=== PATIENT | female | born 1980 | race Caucasian/White ===

== ENCOUNTER 2016-10-30 11:38 | Emergency (ER) | payer BC ==
[~2016-10-30] VITALS: Ht 160 cm; Wt 53.3 kg
[~2016-10-30 11:38] MED LIST: BUPR150T3 PO; PHEN100C4 PO
[2016-10-30 11:40] VITALS: Ht 160 cm; Wt 53.3 kg
--- OUTSIDE RECORDS SUMMARY | 2016-10-30 11:43 | XMS REPORT | Continuity of Care Document ---
Author Author [facility] Organization [facility] Address Unknown Phone Unavailable Support Name Relationship Address Phone KIKE ARTHUR BABY SITTER Caregiver [address] [place] [address] Unavailable CHANNING SHER APRN Caregiver [address] [place] [address] Unavailable JONATHAN KONG Next Of Kin [address] [place] [address] C Insurance Providers Guarantor Marilee Kong Address [address] [place] [address] * Email [email or web address] Policy Number [id number] Subscriber's Name Joanthan Kong Relationship 01 Spouse Group Number [id number] Chief Complaint and Reason for Visit Chief Complaint Female Urogenital Problems Reason for Visit Abdominal pain Problems Past Problems Medical Problem Onset Date Abdominal pain Unknown Persistent cough Unknown Viral upper respiratory tract infection with cough Unknown Medications Current Home Medications Medication Dose Units Route Directions Days Qty Instructions Start Date Bupropion Hcl (Wellbutrin Sr) 150 Mg Tablet Twice A Day 04/30 Phenytoin Sodium Extended (Dilantin) 100 Mg Capsule 1.5 Cap Oral Bedtime Take 1 capsule, by mouth, daily with breakfast. 10/29/16 Social History Social History Problem Response Recorded Date/Time Onset Date Status Hx Alcohol Use Y OCCASIONALLY 06/29/2016 12:04am Not Applicable Not Applicable Hospital Discharge Instructions No hospital discharge instructions. Plan of Care Discharge Date 10/29/16 6:50pm Disposition 01 DISCHARGED HOME, SELF-CARE Condition at Discharge Stable Prescriptions See Medication Section Referrals CHANNING SHER APRN Address: [address] [place], [place] [id number] Additional Instructions/Education Go to the ER for further evaluation and treatment. Functional Status No functional status results. Allergies, Adverse Reactions, Alerts No known allergies. Immunizations Query Response on File Recorded Date/Time Influenza Vaccine Hx MAY 2016 10/29/16 6:38pm Tetanus Diptheria Vaccine History UP TO DATE 10/29/16 6:38pm Vital Signs Acute Vital Signs Vital Response Date/Time Temperature (Fahrenheit) 97.6 deg F (96.8 - 99.1) 10/29/2016 6:39pm Temperature (Calculated Celsius) 36.92493 degrees C (36.0 - 37.3) 10/29/2016 6:39pm Pulse Rate (adult) 86 bpm (60 - 100) 10/29/2016 6:39pm O2 Sat by Pulse Oximetry 97 % (90 - 100) 10/29/2016 6:39pm Blood Pressure 101/67 mm Hg 10/29/2016 6:39pm Height (Inches) 63.20 inches 10/29/2016 6:39pm Weight (Kilograms) 56.800 kg 10/29/2016 6:39pm Body Mass Index (BMI) 22.0 10/29/2016 6:39pm Results Laboratory Results Test Name Result Units Flags Reference Collection Date/Time Result Date/ Time Comments White Blood Count 7.0 T/MM3 4.5-11.0 08/05/2016 11:00am 08/05/2016 11: 06am Red Blood Count 4.41 M/MM3 4.00-5.20 08/05/2016 11:00am 08/05/2016 11: 06am Hemoglobin 13.6 GM/DL 12-16 08/05/2016 11:00am 08/05/2016 11:06am Hematocrit 40.6 % 36-46 08/05/2016 11:00am 08/05/2016 11:06am Mean Corpuscular Volume 92.1 UM3 80-100 08/05/2016 11:00am 08/05/2016 11:06am Mean Corpuscular Hemoglobin 30.8 UUG 26-34 08/05/2016 11:00am 2015 11:06am Mean Corpuscular Hemoglobin Concent 33.5 GM/DL 31-37 08/05/2016 11:00am 08/05/2016 11:06am RDW Standard Deviation 40.2 FL 36.9-50.2 08/05/2016 11:00am 08/05/2016 11:06am Platelet Count 228 T/MM3 130-400 08/05/2016 11:00am 08/05/2016 11:06am Mean Platelet Volume 9.4 UM3 9.4-12.4 08/05/2016 11:00am 08/05/2016 11: 06am Neutrophils (%) (Auto) 66.0 % 33-66 08/05/2016 11:00am 08/05/2016 11: 06am Lymphocytes (%) (Auto) 23.7 % 23-45 08/05/2016 11:00am 08/05/2016 11: 06am Monocytes (%) (Auto) 8.8 % 0-9.0 08/05/2016 11:00am 08/05/2016 11:06am Eosinophils (%) (Auto) 0.7 % 0-4 08/05/2016 11:00am 08/05/2016 11:06am Basophils (%) (Auto) 0.7 % 0-2 08/05/2016 11:00am 08/05/2016 11:06am Immature Granulocyte % (Auto) 0.1 % 0.0-0.5 08/05/2016 11:00am 2015 11:06am Absolute Neutrophils (auto) 4.6 T/MM3 1.8-7.7 08/05/2016 11:00am 2015 11:06am Absolute Lymphocytes (auto) 1.7 T/MM3 1-4.8 08/05/2016 11:00am 2015 11:06am Absolute Monocytes (auto) 0.6 T/MM3 0-0.8 08/05/2016 11:00am 2015 11:06am Absolute Eosinophils (auto) 0.1 T/MM3 0-0.5 08/05/2016 11:00am 2015 11:06am Absolute Basophils (auto) 0.1 T/MM3 0-0.2 08/05/2016 11:00am 2015 11:06am Absolute Immature Granulocyte (auto 0.01 T/MM3 0.00-0.03 08/05/2016 11: 00am 08/05/2016 11:06am Icterus Index < 2 0-7 08/05/2016 11:00am 08/05/2016 11:16am Chemistry Specimen Hemolysis < 15 0-25 08/05/2016 11:00am 08/05/2016 11:16am 0-25: Specimen Exhibited No Hemolysis. Turbidity < 20 0-20 08/05/2016 11:00am 08/05/2016 11:16am Sodium Level 140 MEQ/L 134-144 08/05/2016 11:00am 08/05/2016 11:16am Potassium Level 3.8 MEQ/L 3.6-5 08/05/2016 11:00am 08/05/2016 11:16am Chloride Level 104 MEQ/L 98-107 08/05/2016 11:00am 08/05/2016 11:16am Carbon Dioxide Level 27 MEQ/L 22-30 08/05/2016 11:00am 08/05/2016 11: 16am Anion Gap 9 MEQ/L 5-15 08/05/2016 11:00am 08/05/2016 11:16am Blood Urea Nitrogen 12.0 MG/DL 7-17 08/05/2016 11:00am 08/05/2016 11: 16am Creatinine 0.9 MG/DL 0.7-1.2 08/05/2016 11:00am 08/05/2016 11:16am BUN/Creatinine Ratio 13 RATIO 6-26 08/05/2016 11:00am 08/05/2016 11: 16am Glomerular Filtration Rate Calc 72 08/05/2016 11:00am 08/05/2016 11 :16am Glucose Level 86 MG/DL 65-110 08/05/2016 11:00am 08/05/2016 11:16am Calculated Osmolality 268 MOSM/KG 261-280 08/05/2016 11:00am 2015 11:16am Calcium Level 9.4 MG/DL 8.4-10.2 08/05/2016 11:00am 08/05/2016 11:16am Total Bilirubin 0.80 MG/DL 0.20-1.30 08/05/2016 11:00am 08/05/2016 11: 16am Alkaline Phosphatase 48 U/L 38-126 08/05/2016 11:00am 08/05/2016 11: 16am Total Protein 7.1 G/DL 6.3-8.2 08/05/2016 11:00am 08/05/2016 11:16am Albumin 4.2 G/DL 3.5-5.0 08/05/2016 11:00am 08/05/2016 11:16am Globulin 2.9 G/DL 2.4-3.6 08/05/2016 11:00am 08/05/2016 11:16am Albumin/Globulin Ratio 1.4 RATIO 1.1-2.2 08/05/2016 11:00am 08/05/2016 11:16am Aspartate Amino Transf (AST/SGOT) 25 U/L 14-36 08/05/2016 11:00am 08/05 11:16am Alanine Aminotransferase (ALT/SGPT) 31 U/L 9-52 08/05/2016 11:00am 11:16am Cholesterol Level 125 MG/DL L 132-199 08/05/2016 11:00am 08/10/2016 1: 14am Triglycerides Level 47 MG/DL 35-135 08/05/2016 11:00am 08/10/2016 1: 14am HDL Cholesterol Direct 55 MG/DL 40-60 08/05/2016 11:00am 08/10/2016 1: 14am LDL Cholesterol, Calculated 60.6 L 66-159 08/05/2016 11:00am 2015 1:14am VLDL Cholesterol 9.4 MG/DL 0-28 08/05/2016 11:00am 08/10/2016 1:14am Cholesterol/HDL Ratio 2.3 RATIO 0-4.0 08/05/2016 11:00am 08/10/2016 1: 14am Thyroid Stimulating Hormone (TSH) 1.35 MIU/L 0.47-4.68 08/05/2016 11: 00am 08/05/2016 11:45am Urine Collection Type CLEANCATCH-MIDSTREAM 10/29/2016 6:32pm 2016 6:59pm Urine Color YELLOW YELLOW 10/29/2016 6:32pm 10/29/2016 6:59pm Urine Turbidity CLEAR CLEAR 10/29/2016 6:32pm 10/29/2016 6:59pm Urine Specific [place] 1.015 1.015-1.025 10/29/2016 6:32pm 2016 6:59pm Urine pH 6.0 5.0-8.0 10/29/2016 6:32pm 10/29/2016 6:59pm Urine Leukocyte Esterase NEGATIVE NEGATIVE 10/29/2016 6:32pm 2016 6:59pm Urine Nitrite NEGATIVE NEGATIVE 10/29/2016 6:32pm 10/29/2016 6:59pm Urine Protein NEGATIVE NEGATIVE 10/29/2016 6:32pm 10/29/2016 6:59pm Urine Glucose (UA) NEGATIVE NEGATIVE 10/29/2016 6:32pm 10/29/2016 6: 59pm Urine Ketones NEGATIVE NEGATIVE 10/29/2016 6:32pm 10/29/2016 6:59pm Urine Urobilinogen NORMAL EU/DL NORMAL 10/29/2016 6:32pm 10/29/2016 6: 59pm Urine Bilirubin NEGATIVE NEGATIVE 10/29/2016 6:32pm 10/29/2016 6: 59pm Urine Blood NEGATIVE NEGATIVE 10/29/2016 6:32pm 10/29/2016 6:59pm Procedures Procedure Status Date Provider(s) Routine venipuncture Completed 08/05/16 Comprehen metabolic panel Completed 08/05/16 Lipid panel Completed 08/05/16 Assay thyroid stim hormone Completed 08/05/16 Complete cbc w/auto diff wbc Completed 08/05/16 Encounters Encounter Location Arrival/Admit Date Discharge/Depart Date Attending Provider Departed Emergency Room [facility] 10/29/16 6:27pm 10/29/16 6: 50pm KIKE ARTHUR APRN Registered Clinic [facility] 08/05/16 10:48am ALEXANDRA CARLISLE APRN Recent Diagnosis
--- NOTE | 2016-10-30 12:10 | NUR ---
PROVIDER Vikas MORALEZ ICE CREAM VENDOR IN TO SEE PATIENT.
--- NOTE | 2016-10-30 12:24 | ERPDOC ---
Departure Disposition Decision Date: Oct 30, 2016 Disposition Decision Time: 16:50 (TEAGAN MORALEZ APRN) Disposition: 01 DISCHARGED HOME, SELF-CARE Impression Impression (TEAGAN MORALEZ APRN) Impression: Primary Impression: Complex cyst of right ovary Severity: Moderate (TEAGAN MORALEZ APRN) Condition: Stable Seen By: Mid-level only (TEAGAN MORALEZ APRN) Referrals: CHANNING SHER APRN (Family) Patient Instructions: Ovarian Cyst (ED) Problems/Meds/Labs Reviewed?: Yes Medications reviewed and manag: Yes (TEAGAN MORALEZ APRN) Additional Instructions: Ultrasound today indicates that you have a complex cyst of the right ovary. You do have some blood in the low abdomen/pelvis as a result of this. I did speak with Dr. Hope and we will go ahead and let you go home. May use Ibuprofen and /or Tylenol for moderate pain and [place] as needed for severe pain. I do want you to return to ER for reevaluation with any severe pain not controlled by the pain medications or any dizziness or lightheadedness. Otherwise follow up with Dr Palencia or Channing GORMAN for reevaluation this week. The pressure that you feel in your bladder is likely from the blood in your pelvis and this should be reabsorbed over the next week. Follow up care ordered?: Yes Mental Status: Alert, Oriented (TEAGAN MORALEZ APRN) Scripts Hydrocodone/Acetaminophen ([place] 5-325 Tablet) 5-325 Tablet 1 TAB PO Q6H Y for PAIN, #12 TAB 0 Refills Prov: TEAGAN MORALEZ APRN 10/30/16 HPI - Abdominal Pain General Chief Complaint: Abdominal Pain Stated Complaint: ABD PAIN Time Seen by Provider: 12:10 Source: patient History/Exam Limitations: no limitations (TEAGAN MORALEZ APRN) Time Seen by Provider: 12:10 (SUBHA LINDQUIST MD) HPI - Abdominal Pain Initial Comments She had onset of RLQ/periumbilical abdominal pain since yesterday. She was able to get through work all day. She thought that she may have had a UTI so she went to [facility] after work. Had a U/A and an HCG that was negative. She was advised to go to ER for evaluation but decided to go home and see if things improved. Pain has gotten worse overnight and so she presents today for eval. Denies any urinary frequency or urgency but is having a pressure in her lower abdomen. Denies any fever or chills or nausea/vomiting. Has had some mild diarrhea. Has been eating and drinking well. Had an IUD placed the first week of October and has had cessation of bleeding since placement. Return for recheck of strings in November with her PCP. Occurred At: home Onset: Gradual Duration: other (For the last 2 days) Quality: burning, sharpness Location: RLQ, periumbilical Radiation: no radiation Activities at Onset: none Associated Symptoms: DENIES: back pain, chest pain, diaphoresis, fatigue, fever /chills, headache, heartburn, nausea/vomiting, rash, shortness of breath, swelling/mass in abdomen, syncope, weakness Hx of Similar Symptoms: No (NOLD,TEAGAN N HYDROELECTRIC PLANT MAINTAINER) Allergies: Coded Allergies: No Known Allergies (Unverified , 10/29/16) Past History Past Medical History Pt denies signifigant PMH (NOLD,TEAGAN N HYDROELECTRIC PLANT MAINTAINER) Surgical History Denies Surgeries (NOLD,TEAGAN N HYDROELECTRIC PLANT MAINTAINER) Family History Family History: Negative (NOLD,TEAGAN N HYDROELECTRIC PLANT MAINTAINER) Social History Second Hand Exposure: No Quit Date: Aug 15, 1999 Substance Use Type: does not use Alcohol Intake: occasionally (NOLD,TEAGAN N HYDROELECTRIC PLANT MAINTAINER) Review of Systems Constitutional Constitutional: DENIES: appetite decrease, chills, dizziness, fatigue, fever, weakness (NOLD,TEAGAN N HYDROELECTRIC PLANT MAINTAINER) Cardiovascular Cardiac: DENIES: chest pain, orthopnea Rhythm/Rate: DENIES: irregular beat, palpitations (NOLD,TEAGAN N HYDROELECTRIC PLANT MAINTAINER) Pulmonary Respiratory: DENIES: cough, dyspnea, sputum, tachypnea (NOLD,TEAGAN N HYDROELECTRIC PLANT MAINTAINER) GI Upper Abdomen: DENIES: nausea, pain, vomiting Lower Abdomen: diarrhea (slight), pain, DENIES: constipation (NOLD,TEAGAN N HYDROELECTRIC PLANT MAINTAINER) General: burning (She describes a pressure in her bladder with urination), DENIES: discharge, dysuria, frequency, urgency (NOLD,TEAGAN N HYDROELECTRIC PLANT MAINTAINER) Integumentary Skin: DENIES: rash (NOLD,TEAGAN N HYDROELECTRIC PLANT MAINTAINER) Neurological General: DENIES: headache, numbness, tingling, weakness (TEAGAN MORALEZ APRN) Physical Exam General General Nourishment: well nourished, well developed, appears stated age, no acute distress, adult General Body Habitus: well groomed (TEAGAN MORALEZ APRN) Vitals and Pain First Documented Vital Signs Date Time Temp Pulse Resp B/P Pulse Ox O2 Delivery O2 Flow Rate FiO2 10/30/16 11:40 98.7 71 16 121/57 98 Room Air (SUBHA LINDQUIST MD) Vitals and Pain Weight: Kilograms: 53.300 Height (feet): 5 Height (inches): 3.00 Triage Pain Scale: (TEAGAN MORALEZ APRN) RN VS reviewed by Provider: Yes (TEAGAN MORALEZ APRN) Normal Exams: Neck: Full range of motion, without adenopathy, JVD, bruits or thyromegaly Chest/Resp: Clear all leos, with good airflow, and symmetry bilaterally CV: Regular rate and rhythm, without murmur or gallop, Pulses 2+ all extremities, capillary refill, <2 seconds all ext., no pedal edema noted Abdomen: Bowel sounds positive, non-distended, no hepatosplenomegaly, masses or bruits noted Lymphatic: No lymphadenopathy, or lymphedema noted Integumentary: No rashes, hives, or bruising noted Neurologic: Patient is alert, and oriented Psychiatric: Patient exhibits, appropriate attention, emotion and affect (TEAGAN MORALEZ HYDROELECTRIC PLANT MAINTAINER) Abdomen Palpation: FOUND: soft, tender (TTP in the RLQ and periumbilical region), voluntary guarding, NOT FOUND: involuntary guarding, rebound (MARIZOL MORALEZA N HYDROELECTRIC PLANT MAINTAINER ) (brief) Female Brief: FOUND: bleeding (scant amount of bright red blood from the cervical os), discharge (moderate amount of white, thick discharge consistent with a yeast infection), other (IUD strings are visualized), tenderness (Mild TTP on the right adnexa) (TEAGAN MORALEZ N HYDROELECTRIC PLANT MAINTAINER) Differential Diagnoses Considering: Appendicitis, Bowel Obstruction, GERD, Hernia, Ileus, Ovarian Cyst , Pyelonephritis, UTI (TEAGAN MORALEZ N HYDROELECTRIC PLANT MAINTAINER) Progress Results/Orders Medications Current ED Medications Iohexol 1 bottle 1 bottle STK-MED ONCE .ROUTE ; Start 10/30/16 at 13:05; Stop at 13:06; Status DC Sodium Chloride (NS) 100 ml @ As Directed STK-MED ONCE .ROUTE ; Start 10/30/16 at 13:05; Stop 10/30/16 at 13:06; Status DC Sodium Chloride (Iv Flush) 10 ml STK-MED ONCE .ROUTE ; Start 10/30/16 at 13:05; Stop 10/30/16 at 13:06; Status DC Ketorolac Tromethamine (Toradol) 30 mg O ONCE IV Last administered on t 16:19; Start 10/30/16 at 16:00; Stop 10/30/16 at 16:01; Status DC Fluconazole (DIFLUCAN 150mg) 150 mg O ONCE PO Last administered on 10/30/16t 17:01; Start 10/30/16 at 17:00; Stop 10/30/16 at 17:01; Status DC (SUBHA LINDQUIST MD) Progress Progress Ct scan does show a hypodense right ovarian mass that measures 3.8x3.4x4.0cm. Ovarian torsion vs ruptured ectopic vs endometrioma vs PID vs hemorrhagic cyst. There is also moderate to large amount of blood in the pelvis. Her WBC is normal and HCG today is negative as well as HCG yesterday. Will go ahead and obtain pelvic US as well as pelvic exam. She has had some vaginal discharge and she attributes this to possible yeast infection. She had taken some of her 's old antibiotics and the discharge started after this. HGB stable at 12.4 US does confirm a complex right ovarian cyst with moderate amount of blood in pelvis. She has been stable and pain well controlled. Discussed lab, CT, US, and pelvic exam results with Dr. Hope. Given that she is not and IUD strings visualized and confirmed in uterus per CT will go ahead and let her go home with pain control. F/U in clinic this week for reevaluation. Strict return precautions are given. (TEAGAN MORALEZ APRN) CT CT : Reason for Exam: RLQ abdominal pain CT: Abd/Pelvis IV contrast Interpretation: Abnormal (hypodense right ovarian mass measuring 3.8x3.4x4.0cm. Moderate to large hyperdense pelvic blood. ) (TEAGAN MORALEZ APRN) Ultrasound US : Reason for Exam: right ovarian mass, moderate to large blood in pelvis Ultrasound: Pelvis US Interpretation: Abnormal (complex right ovarian cyst with moderate blood in pelvis) (TEAGAN MORALEZ APRN) TEAGAN MORALEZ Amira GORMAN Oct 30, 2016 12:24 SUBHA LINDQUIST MD Nov 01, 2016 10:14 Hemoglobin 12.4GM/DL Hematocrit 36.3% Mean Corpuscular Volume 91.4UM3 Mean Corpuscular Hemoglobin 31.2UUG Mean Corpuscular Hemoglobin Concent 34.2GM/DL RDW Standard Deviation 39.5FL Platelet Count 211T/MM3 Mean Platelet Volume 9.6UM3 Immature Granulocyte % (Auto) 0.0% Neutrophils (%) (Auto) 62.3% Lymphocytes (%) (Auto) 26.2% Monocytes (%) (Auto) 9.3% Eosinophils (%) (Auto) 1.4% Basophils (%) (Auto) 0.8% Absolute Immature Granulocyte (auto 0.00T/MM3 Absolute Neutrophils (auto) 3.9T/MM3 Absolute Lymphocytes (auto) 1.6T/MM3 Absolute Monocytes (auto) 0.6T/MM3 Absolute Eosinophils (auto) 0.1T/MM3 Absolute Basophils (auto) 0.1T/MM3 Turbidity < 20 Sodium Level 142MEQ/L Potassium Level 4.2MEQ/L Chloride Level 107MEQ/L Carbon Dioxide Level 28MEQ/L Anion Gap 7MEQ/L Blood Urea Nitrogen 14.0MG/DL Creatinine 0.8MG/DL Glomerular Filtration Rate Calc 82 BUN/Creatinine Ratio 18RATIO Glucose Level 88MG/DL Calculated Osmolality 273MOSM/KG Calcium Level 8.8MG/DL Total Bilirubin 0.80MG/DL Icterus Index < 2 Aspartate Amino Transf (AST/SGOT) 24U/L Alanine Aminotransferase (ALT/SGPT) 31U/L Alkaline Phosphatase 47U/L Total Protein 6.4G/DL Albumin 3.7G/DL Globulin 2.7G/DL Albumin/Globulin Ratio 1.4RATIO Chemistry Specimen Hemolysis < 15 Urine Collection Type Cleancatch-midstream Urine Color Yellow Urine Turbidity Clear Urine pH 6.5 Urine Specific [place] 1.010 Urine Protein Negative Urine Glucose (UA) Negative Urine Ketones Negative Urine Blood Negative Urine Nitrite Negative Urine Bilirubin Negative Urine Urobilinogen 0.2EU/DL Urine Leukocyte Esterase Negative Urinalysis Comment Microscopic not ind. Urine Test Negative Chlamydia trachomatis DNA (PCR) Pending N. gonorrhoeae DNA Specimen Source Pending Neisseria gonorrhoeae DNA (PCR) Pending Medications Current ED Medications Iohexol 1 bottle 1 bottle STK-MED ONCE .ROUTE ; Start 10/30/16 at 13:05; Stop at 13:06; Status DC Sodium Chloride (NS) 100 ml @ As Directed STK-MED ONCE .ROUTE ; Start 10/30/16 at 13:05; Stop 10/30/16 at 13:06; Status DC Sodium Chloride (Iv Flush) 10 ml STK-MED ONCE .ROUTE ; Start 10/30/16 at 13:05; Stop 10/30/16 at 13:06; Status DC Ketorolac Tromethamine (Toradol) 30 mg O ONCE IV Last administered on t 16:19; Start 10/30/16 at 16:00; Stop 10/30/16 at 16:01; Status DC Progress Progress Ct scan does show a hypodense right ovarian mass that measures 3.8x3.4x4.0cm. Ovarian torsion vs ruptured ectopic vs endometrioma vs PID vs hemorrhagic cyst. There is also moderate to large amount of blood in the pelvis. Her WBC is normal and HCG today is negative as well as HCG yesterday. Will go ahead and obtain pelvic US as well as pelvic exam. She has had some vaginal discharge and she attributes this to possible yeast infection. She had taken some of her 's old antibiotics and the discharge started after this. HGB stable at 12.4 US does confirm a complex right ovarian cyst with moderate amount of blood in pelvis. She has been stable and pain well controlled. Discussed lab, CT, US, and pelvic exam results with Dr. Hope. Given that she is not and IUD strings visualized and confirmed in uterus per CT will go ahead and let her go home with pain control. F/U in clinic this week for reevaluation. Strict return precautions are given. CT CT : Reason for Exam: RLQ abdominal pain CT: Abd/Pelvis IV contrast Interpretation: Abnormal (hypodense right ovarian mass measuring 3.8x3.4x4.0cm. Moderate to large hyperdense pelvic blood. ) Ultrasound US : Reason for Exam: right ovarian mass, moderate to large blood in pelvis Ultrasound: Pelvis US Interpretation: Abnormal (complex right ovarian cyst with moderate blood in pelvis) TEAGAN MORALEZ APRN Oct 30, 2016 12:24
--- NOTE | 2016-10-30 12:29 | NUR ---
COMMUNICATION STUDIES PROFESSOR IN ROOM TO DRAW LAB.
[2016-10-30] MEDS ORDERED: LAMO150T PO (12:32)
[2016-10-30] MEDS ORDERED: NAPR220T61 PO (12:32)
[2016-10-30 12:42] LABS: BASOPHILS # (AUTO) 0.1 T/MM3 (0-0.2); BASOPHILS % (AUTO) 0.8 % (0-2); EOSINOPHILS # (AUTO) 0.1 T/MM3 (0-0.5); EOSINOPHILS % (AUTO) 1.4 % (0-4); HCT - HEMATOCRIT 36.3 % (36-46); HGB - HEMOGLOBIN 12.4 GM/DL (12-16); LYMPHOCYTES # (AUTO) 1.6 T/MM3 (1-4.8); LYMPHOCYTES % (AUTO) 26.2 % (23-45); MEAN CORPUSCULAR HGB 31.2 UUG (26-34); MEAN CORPUSCULAR HGB CONC(MCHC 34.2 GM/DL (31-37); MEAN CORPUSCULAR VOLUME 91.4 UM3 (80-100); MEAN PLATELET VOLUME 9.6 UM3 (9.4-12.4); MONOCYTES # (AUTO) 0.6 T/MM3 (0-0.8); MONOCYTES % (AUTO) 9.3 % (0-9.0); NEUTROPHILS #(AUTO)-ABSOLUTE 3.9 T/MM3 (1.8-7.7); NEUTROPHILS % (AUTO) 62.3 % (33-66); RED BLOOD COUNT 3.97 M/MM3 (4.00-5.20); WBC - WHITE BLOOD COUNT 6.2 T/MM3 (4.5-11.0)
[2016-10-30 12:43] LABS: BLOOD, URINE NEGATIVE (NEGATIVE); COLOR,URINE YELLOW (YELLOW); LEUKOCYTE ESTERASE ,URINE NEGATIVE (NEGATIVE); NITRITE,URINE NEGATIVE (NEGATIVE); UROBILINOGEN,URINE 0.2 EU/DL (NORMAL)
[2016-10-30 12:48] LABS: ALBUMIN 3.7 G/DL (3.5-5.0); ALBUMIN/GLOBULIN RATIO 1.4 RATIO (1.1-2.2); ALKALINE PHOSPHATASE 47 U/L (38-126); ALT (SGPT) 31 U/L (9-52); ANION GAP 7 MEQ/L (5-15); AST (SGOT) 24 U/L (14-36); BUN/CREATININE RATIO 18 RATIO (6-26); CALCIUM 8.8 MG/DL (8.4-10.2); CHLORIDE 107 MEQ/L (98-107); CO2 - CARBON DIOXIDE 28 MEQ/L (22-30); CREATININE 0.8 MG/DL (0.7-1.2); GLOMERULAR FILTRATION RATE 82; GLUCOSE 88 MG/DL (65-110); POTASSIUM 4.2 MEQ/L (3.6-5); SODIUM 142 MEQ/L (134-144); TOTAL PROTEIN 6.4 G/DL (6.3-8.2)
[2016-10-30] MEDS ORDERED: SALINE FLUSH 10ml SYRINGE ONE (13:05)
[2016-10-30] MEDS ORDERED: NORMAL SALINE 100 ML ONE (13:05)
[2016-10-30] MEDS ORDERED: IOHEXOL 300 MG/ML 75ml INJECTION ONE (13:05)
--- NOTE | 2016-10-30 13:42 | NUR ---
TO CT PER CART.
--- NOTE | 2016-10-30 13:55 | NUR ---
BACK FROM CT
--- NOTE | 2016-10-30 14:20 | NUR ---
US MANAGER SCIENTIFIC PAGED AT THIS TIME.
--- NOTE | 2016-10-30 14:42 | NUR ---
PROVIDER Vikas MORALEZ SCHEDULE CHECKER IN TO SEE PATIENT. LETTY OSULLIVAN, ASSISTING.
--- NOTE | 2016-10-30 15:15 | NUR ---
US TECH IN ROOM DOING US.
[2016-10-30] MEDS ORDERED: KETOROLAC 30mg/ml INJECTION IV ONE (16:00)
[2016-10-30] MEDS ORDERED: HYDR-4246 PO (16:53)
[2016-10-30] MEDS ORDERED: FLUCONAZOLE 150 MG TABLET PO ONE (17:00)
[2016-10-30 17:07] VITALS: BP 91/57; PULSE 70; RESP 16; TEMP 98.8; O2SAT 97
--- NOTE | 2016-10-30 17:07 | NUR ---
DEPART Pt DEPARTED WITH [facility] Rx, OVARIAN CYST EDUCATION, STRICT ER PRECAUTIONS AND S/S TO WATCH FOR. QUESTIONS ANSWERED, IV DC'd--CATHETER INTACT. LEFT AMBULATORY.
--- NOTE | 2016-10-31 14:00 | DI ---
Indication: ITS.REASON: abdominal pain PROCEDURE: CT ABD/PELVIS W/CONTRAST ONLY: Encounter: Initial Comparison: None Technique: Axial CT images were performed through the abdomen and pelvis after the administration of intravenous contrast. Coronal and sagittal two-dimensional reformats. Automated Exposure Control and Iterative Reconstruction dose reducing techniques were utilized. Contrast: Omnipaque 300 67 mL Findings: The lung bases are clear. The liver is normal. Gallbladder is decompressed. The spleen, pancreas and adrenal glands are within normal limits. Kidneys are normal. No abdominal or pelvic lymphadenopathy. Intrauterine device within the uterus. Prominent right ovarian cyst or follicle measuring 2.5 cm in diameter. No evidence of a bowel obstruction. Minimal intra-abdominal fat limits the overall exam. The appendix is not definitely identified but there are no inflammatory changes to suggest acute appendicitis. Bony structures are unremarkable. There is moderate amount of high attenuation fluid seen within the pelvis probably representing hemorrhage measuring 65 Hounsfield units. Impression: Moderate free hemorrhage in the pelvis could represent a recently ruptured hemorrhagic cyst or less likely ruptured ectopic . Recommend correlation with serum beta hCG level. Pelvic ultrasound could be helpful for further evaluation. There is a preliminary report by [employer]. .
--- NOTE | 2016-10-31 14:04 | DI ---
Indication: ITS.REASON: RIGHT OVARIAN MASS, Moderate-Large blood in pelvis PROCEDURE: US PELVIC NON OB W/TRANS VAG: Encounter: Initial Comparison: CT abdomen and pelvis from the same date FINDINGS: Transvaginal and transabdominal pelvic imaging was performed. The uterus measures 9 x 4.1 x 6 cm. The parenchyma is homogeneous without fibroids. There is no evidence of focal endometrial mass. Intrauterine device appears appropriately positioned by ultrasound. Both ovaries are identified. The right ovary measures 3.6 x 2.5 x 3.6 cm. This shows a low echogenicity lesion with low-level internal echoes consistent with a hemorrhagic cyst best seen on the transvaginal images. This lesion measures 3.1 x 2.7 x 2.1 cm in size. The left ovary measures 2.5 x 1.6 x 1.9 cm. There are no abnormal adnexal masses detected. Free hemorrhage in the pelvis. IMPRESSION: Free hemorrhage in the pelvis with a hemorrhagic cyst in the right ovary is probably due to recent rupture of the hemorrhagic cyst. There is a preliminary report by [facility]. .
== END 2016-10-30 17:07 | disposition home or self-care (01) ==
LOC: ED 11:38
DX: N83.291 Other ovarian cyst, right side (principal)
CPT/HCPCS: 36415; 74177; 76830; 76856; 80053; 81003; 81025; 85025; 87070; 87077; 87186; 87205; 87210; 87220; 87491; 87591; 96374; 99284; J1885; J7050; Q9967